=== PATIENT | female | born 1960 | race Two or more races ===

== ENCOUNTER → 2024-07-27 | Emergency (ER) | payer OTHER | END | disposition home or self-care (01) | LOC: ER 10:05 | DX: M25.551 Pain in right hip (principal); M16.11 Unilateral primary osteoarthritis, right hip; I25.10 Atherosclerotic heart disease of native coronary artery without angina pectoris; I10 Essential (primary) hypertension | CPT/HCPCS: 96372; 99282; J1885 ==